=== PATIENT | male | born 1945 | race Caucasian/White ===

== ENCOUNTER 2020-06-15 00:20 | Outpatient (CLI) | payer MEDICARE, SELFPAY ==
[2020-06-15 17:56] LABS: SARS-CoV-2 RNA PCR Negative
== END 2020-06-15 00:21 | disposition home or self-care (01) ==
LOC: ANHCOVIDDT 00:20
PROVIDERS: PCP Family Medicine; Visit Provider Internal Medicine Gastroenterology
DX: Z01.818 Encounter for other preprocedural examination (principal); Z11.59 Encounter for screening for other viral diseases
CPT/HCPCS: 87635; C9803; U0003

== ENCOUNTER 2020-06-17 02:00 | Day surgery (SDC) | payer MEDICARE, SELFPAY ==
[2020-06-07 14:31] VITALS: BMI 26.4
[2020-06-17 06:30] VITALS: BP 157/77; PULSE 74; RESP 18; TEMP 36.7; O2SAT 99; BMI 26.8
[2020-06-17] MEDS: LACTATED RINGERS 1,000 ML 150 ML IV CONT (06:45)
--- NOTE | 2020-06-17 07:19 | P.PNAN_ITS ---
Anes - Initial Pre Proc Eval Procedure: Operation Date: 06/17/20 07:30 Proposed Procedures p Screening Colonoscopy - Sukhi Merlos MD Date/Time: 06/17/20 07:19 Surgeon: Sukhi Merlos MD Pre Op Diagnosis: hx colon polyps Patient Data Age: 75 Gender: M Height: 6 ft Weight: 89.8 kg Last Vital Signs Temp 98.0 F 06/17/20 06:30 Pulse 74 06/17/20 06:30 Resp 18 06/17/20 06:30 BP 157/77 H 06/17/20 06:30 Pulse Ox 99 06/17/20 06:30 Allergies Allergy/AdvReac Type Severity Reaction Status Date / Time No Known Allergies Allergy Verified 06/17/20 06:28 Home Medications Medication Instructions Recorded Confirmed Type losartan 100 1 tablet PO DAILY 02/16/20 06/07/20 History mg-hydrochlorothiazide 12.5 mg tablet metoprolol succinate 200 mg 200 mg PO DAILY 02/16/20 06/07/20 History tablet,extended release 24 hr allopurinol 300 mg tablet 300 mg PO DAILY #90 tablet 04/07/20 06/07/20 Rx omeprazole 20 mg tablet,delayed 20 mg PO DAILY #90 tablet 04/07/20 06/07/20 Rx release rosuvastatin 20 mg tablet 20 mg PO DAILY #90 tablet 04/07/20 06/07/20 Rx amlodipine 5 mg PO DAILY 06/07/20 06/07/20 History Patient hx anesthesia problems: none Family hx anesthesia problems: none PMFSH Past Medical History Medical History (Updated 06/17/20 @ 07:18 by Nicho Mcnamara MD) Arthritis Essential (primary) hypertension GERD (gastroesophageal reflux disease) Hepatitis C antibody test negative (~12/21/17) Mixed hyperlipidemia Surgical History Surgical History (Updated 02/16/20 @ 12:10 by Sabi Vázquez CMA) H/O hernia repair (~1999) History of total right hip arthroplasty (~11/19/05) Family History Family History (Updated 03/19/18 @ 11:59 by DOCTOR UNKNOWN) Mother Diabetes mellitus Hypertension Family history of congestive heart failure Father Family history of cardiovascular disease, Onset Age: 67 Acute myocardial infarction, Onset Age: 67 Hypertension Family history of elevated blood lipids Family history of coronary artery disease Social History Social History (Updated 02/16/20 @ 12:10 by Sabi Vázquez PSYCH COORDINATOR) Smoking status: Former smoker Smoking end date: 11/19/84 Alcohol intake: current Anes - Eval Final PreProcedure Day of Procedure 06/17/20 07:19 Patient weight: overweight Heart: regular rate and rhythm Lungs: clear to auscultation Airway: Mallampati scale class III Neurological: alert and oriented Last oral intake: >/= 8 hours ASA classification: III Emergent: no Anesthetic plan: proceed Anesthesia type and monitoring: general GIVS and standard monitoring Informed Consent: The patient's anesthetic plan and its attendant risks and benefits were discussed with the patient/family/POA. Questions were solicited and answers provided to the satisfaction of the patient/family/POA.
--- NOTE | 2020-06-17 07:35 | WPDGICN ---
Assessment and Plan Assessment and plan (1) History of colon polyps: Code(s): Z86.010 - Personal history of colonic polyps Status: Acute Assessment and Plan: Patient has a history of tubular adenoma removed from the colon 2013. Plan is for surveillance colonoscopy now and at 5 year intervals in the future. GI Consult Note Consult date/time: 06/17/20 07:35 HPI: Ryan Rosado is a 75 year old male seen in evaluation at the request of Dr Akosua Carlson.Patient presents for screening colonoscopy. Patient has a history of a tubular adenomatous colon polyp removed from the colon in 2013. Patient's current weight appetite bowel movements are normal. He denies abdominal pain. He denies blood in his stools. His weight has remained stable. Family history is noncontributory. Review of Systems Review of Systems: All systems reviewed & are unremarkable except as noted in HPI and below PMFSH Past Medical History Medical History Arthritis Essential (primary) hypertension GERD (gastroesophageal reflux disease) Hepatitis C antibody test negative (~12/21/17) Mixed hyperlipidemia Surgical History Surgical History H/O hernia repair (~1999) History of total right hip arthroplasty (~11/19/05) Family History Family History Mother Diabetes mellitus Hypertension Family history of congestive heart failure Father Family history of cardiovascular disease, Onset Age: 67 Acute myocardial infarction, Onset Age: 67 Hypertension Family history of elevated blood lipids Family history of coronary artery disease Social History Social History Smoking status: Former smoker Smoking end date: 11/19/84 Alcohol intake: current Meds Home Medications and Allergies Home Medications Medication Instructions Recorded Confirmed Type losartan 100 1 tablet PO DAILY 02/16/20 06/07/20 History mg-hydrochlorothiazide 12.5 mg tablet metoprolol succinate 200 mg 200 mg PO DAILY 02/16/20 06/07/20 History tablet,extended release 24 hr allopurinol 300 mg tablet 300 mg PO DAILY #90 tablet 04/07/20 06/07/20 Rx omeprazole 20 mg tablet,delayed 20 mg PO DAILY #90 tablet 04/07/20 06/07/20 Rx release rosuvastatin 20 mg tablet 20 mg PO DAILY #90 tablet 04/07/20 06/07/20 Rx amlodipine 5 mg PO DAILY 06/07/20 06/07/20 History Allergies Allergy/AdvReac Type Severity Reaction Status Date / Time No Known Allergies Allergy Verified 06/17/20 06:28 Vital Signs Vital Signs - 24 hr 06/17/20 06:30 Temperature 98.0 F Pulse Rate 74 Respiratory Rate 18 Blood Pressure 157/77 H Pulse Oximetry 99 Exam Narrative: Exam Narrative: Physical exam reveals patient to be alert. Vital signs stable. HEENT exam unremarkable. Lungs are clear to auscultation and percussion. Heart is without murmur or extra sounds. Abdominal exam bowel sounds are present soft nontender with no organomegaly. Digital external rectal exam is normal.
[2020-06-17 07:52] VITALS: BP 113/64; PULSE 61; RESP 18; O2SAT 97
[2020-06-17 08:02] VITALS: BP 113/67; PULSE 57; RESP 18; O2SAT 98
[2020-06-17 08:11] VITALS: BP 122/67; PULSE 51; RESP 18; O2SAT 98
== END 2020-06-17 08:49 | disposition home or self-care (01) ==
PROVIDERS: PCP Family Medicine; Visit Provider Internal Medicine Gastroenterology
PROC: 0DJD8ZZ Inspection of Lower Intestinal Tract, Via Natural or Artificial Opening Endoscopic (ICD-10-PCS; CPT 45378; principal; 2020-06-17 07:30)
DX: Z12.11 Encounter for screening for malignant neoplasm of colon (principal); K57.30 Diverticulosis of large intestine without perforation or abscess without bleeding; K64.8 Other hemorrhoids; D12.8 Benign neoplasm of rectum; I10 Essential (primary) hypertension; E78.2 Mixed hyperlipidemia; K21.9 Gastro-esophageal reflux disease without esophagitis; Z87.891 Personal history of nicotine dependence
CPT/HCPCS: 45385; 88305; J2704; J7120

== ENCOUNTER 2024-04-23 10:30 | Outpatient (CLI) | payer MEDICARE, OTHER, SELFPAY ==
--- NOTE | ~2024-04-23 | XR_ITS ---
Lumbosacral Spine: AP and lateral views Clinical History: Pain Findings: The normal lordotic curve is maintained. No fracture seen. There is minimal grade 1 retroli sthesis of L2 over L3. There is mild degenerative disc change of the lumbar spine. There is moderate to advanced facet arthropathy throughout the lumbar spine.. The sacroiliac joints are normally outli yumiko. Impression: Moderate degenerative spondylosis, as above. Reviewed, dictated and finalized at location . Impression: Moderate degenerative spondylosis, as above.
--- NOTE | ~2024-04-23 | XR_ITS ---
AP view of the pelvis and AP and lateral views of the left hip Clinical history: Pain Findings: No acute fracture or dislocation is seen. Osseous alignment is anatomic. Right hip arthropl asty in place. There is minimal degenerative change of the left hip joint. Soft tissues are unremarka ble. Impression: Minimal left hip joint degenerative change. Right hip arthroplasty. Reviewed, dictated and finalized at location . Impression: Minimal left hip joint degenerative change. Right hip arthroplasty.
== END 2024-04-23 10:31 ==
PROVIDERS: PCP Family Medicine; Visit Provider Nurse Practitioner
DX: M47.896 Other spondylosis, lumbar region (principal); M16.12 Unilateral primary osteoarthritis, left hip; Z96.641 Presence of right artificial hip joint
CPT/HCPCS: 72100; 73502

== ENCOUNTER 2024-07-24 09:07 | Emergency (ER) | payer MEDICARE, OTHER, SELFPAY ==
--- NOTE | ~2024-07-24 | CT_ITS ---
EXAMINATION: CT elbow LT wo con DATE: 07/24/2024 11:06 INDICATION: Posterior left elbow pain and swelling post fall TECHNIQUE: High resolution computed tomography (CT) of the left elbow was performed without intraveno us contrast. Additional sagittal and coronal reconstructions were performed. Automated exposure contr ol and iterative reconstruction technique were employed. The dose-length product was 470.20 mGy-cm. COMPARISON: None FINDINGS: Nondisplaced fracture across the tip of the coronoid process with likely secondary moderate sized elb ow joint effusion. No other fractures identified. Osteoarthritis, severe at the radiocapitellar artic ulation, moderate severity at the ulnotrochlear articulation and mild at the proximal radioulnar afshin culation. There is soft tissue swelling and subcutaneous gas suggesting associated skin laceration po sterior to the olecranon. Small enthesopathic ossicles at the olecranon insertion of the distal sunni ps tendon and at the medial epicondylar origin of the common flexor tendon wad. Tiny enthesophyte at the lateral epicondylar origin of the common extensor tendon wad. IMPRESSION: 1. Nondisplaced fracture across the tip of the coronoid process. Reviewed, dictated and finalized at location A.
--- NOTE | ~2024-07-24 | XR_ITS ---
Left elbow Technique: AP, oblique, and lateral views were obtained. Clinical History: Pain Findings: There is displacement of the fat pads, compatible with moderate to large joint effusion. Th is is compatible with underlying fracture, and there is a possible poorly delineated fracture of the coronoid process of the ulna. Otherwise, radial head fracture is statistically most likely. There is mild degenerative change of the elbow joint. There is enthesopathic change at the medial epicondyle a nd the triceps insertion. Impression: Moderate elbow joint effusion compatible with underlying fracture, possibly coronoid process fracture versus occult radial head fracture. Consider cross-sectional imaging to further evaluate for precise fracture anatomy, as indicated. Reviewed, dictated and finalized at location . Impression: Moderate elbow joint effusion compatible with underlying fracture, possibly cor onoid process fracture versus occult radial head fracture. Consider cross-secti onal imaging to further evaluate for precise fracture anatomy, as indicated.
[2024-07-24 09:40] VITALS: BP 172/85; PULSE 73; RESP 16; TEMP 36.8; O2SAT 99
--- NOTE | 2024-07-24 09:43 | ED.UPPEXIN ---
HPI - Extremity Injury (Upper) General Chief Complaint: Extremity Injury, Upper <BETHANY Olivera Last Filed: 07/24/24 16:22> Stated Complaint: left elbow injury <BETHANY Olivera Last Filed: 07/24/24 16:22> Time Seen by Provider: 07/24/24 09:43 <BETHANY Olivera Last Filed: 07/24/24 16:22> Source: patient <BETHANY Olivera Last Filed: 07/24/24 16:22> Mode of arrival: ambulatory <BETHANY Olivera Last Filed: 07/24/24 16:22> Limitations: no limitations <BETHANY Olivera Last Filed: 07/24/24 16:22> History of Present Illness HPI narrative: this is a 79-year-old male who presents to the ED for chief complaint of left elbow injury that occurred yesterday evening around 7:00 p.m.. Patient states that he is going down the garage steps and probably tripped due to his neuropathy. He states that he fell into the boat ramp which is what struck the left elbow. States that he ended up landing flat on his back but has had no back pain last night or today. Denies head injury or LOC. Denies new onset numbness or weakness or any further site of injury <BETHANY Olivera Last Filed: 07/24/24 16:22> Related Data Home Medications: Home Medications Medication Instructions Recorded Confirmed amlodipine 5 mg tablet 5 mg PO DAILY 08/14/23 06/19/24 losartan 100 mg tablet 100 mg PO DAILY 08/14/23 06/19/24 <BETHANY Olivera Last Filed: 07/24/24 16:22> Allergies/Adverse Reactions: Allergies Allergy/AdvReac Type Severity Reaction Status Date / Time No Known Allergies Allergy Verified 07/24/24 11:33 <BETHANY Olivera Last Filed: 07/24/24 16:22> Review of Systems Review of Systems: All systems as dictated in HPI <BETHANY Olivera Last Filed: 07/24/24 16:22> [facility] Past Medical History Medical History: Medical History (Updated 07/24/24 @ 11:23 by Darrian Baltazar PA-C) Arthritis Essential (primary) hypertension GERD (gastroesophageal reflux disease) Hepatitis C antibody test negative (~12/21/17) Mixed hyperlipidemia <Darrian Baltazar PA-C - Last Filed: 07/24/24 16:22> Surgical History Surgical History: Surgical History H/O hernia repair (~1999) History of total right hip arthroplasty (~11/19/05) <Darrian Baltazar PA-C - Last Filed: 07/24/24 16:22> Family History Family History: Family History Mother Diabetes mellitus Hypertension Family history of congestive heart failure Father Family history of cardiovascular disease, Onset Age: 67 Acute myocardial infarction, Onset Age: 67 Hypertension Family history of elevated blood lipids Family history of coronary artery disease <Darrian Baltazar PA-C - Last Filed: 07/24/24 16:22> Social History Social History: Social History Smoking status: Former smoker Smoking end date: 11/19/84 Alcohol intake: current Drinks per week: 24 Substance use: never Substance use type: does not use Lack of Transportation: No Lack of Food: Never True Current Housing: I Have Housing Concerned About Future Housing: No Difficulty Paying Gas/Electric Bills: No Difficulty Paying for Meds: No Currently Unemployed: No Education: High School Diploma/GED Difficulty w/ Childcare or Family Care: No Living arrangements: with family Occupation/Education: retired Gender identity (if verbalized by the patient): Male <Darrian Baltazar PA-C - Last Filed: 07/24/24 16:22> Exam Narrative: GENERAL: Well-appearing, well-nourished, and in no acute distress. HEAD: Normocephalic, atraumatic. EYES: PERRLA and EOMI. ENT: Nares clear, no rhinorrhea or epistaxis. Mucous membranes moist. Oropharynx without tonsillar hypertrophy exudate or other lesions. NECK: Supple. No adenopathy or
[2024-07-24 12:35] VITALS: BP 141/76; PULSE 60; RESP 16; TEMP 36.1; O2SAT 100
== END 2024-07-24 12:45 | disposition home or self-care (01) ==
PROVIDERS: Emergency Provider Physician Assistant; PCP Family Medicine
DX: S52.042A Displaced fracture of coronoid process of left ulna, initial encounter for closed fracture (principal); W10.9XXA Fall (on) (from) unspecified stairs and steps, initial encounter; I10 Essential (primary) hypertension; E78.2 Mixed hyperlipidemia; K21.9 Gastro-esophageal reflux disease without esophagitis; Z87.891 Personal history of nicotine dependence
CPT/HCPCS: 29105; 73080; 73200; 99284; A4565

== ENCOUNTER 2024-08-28 10:50 | Outpatient (CLI) | payer MEDICARE, OTHER, SELFPAY ==
--- NOTE | ~2024-08-28 | XR_ITS ---
Left elbow Technique: AP, oblique, and lateral views were obtained. Clinical History: Fracture COMPARISON: 07/24/2024 Findings: Probable nondisplaced coronoid fracture, somewhat poorly seen radiographically. No change i n alignment. Stable enthesopathic changes at the triceps tendon insertion and medial epicondyle humer us. Joint effusion is resolved. Impression: Probably no significant interval change in nondisplaced coronoid process fracture. Interval resolution of joint effusion. Reviewed, dictated and finalized at location . Impression: Probably no significant interval change in nondisplaced coronoid process fractu re. Interval resolution of joint effusion.
== END 2024-08-28 10:51 | disposition home or self-care (01) ==
LOC: ANHIMG 10:54
PROVIDERS: PCP Nurse Practitioner; Visit Provider Orthopaedic Surgery
DX: S52.045A Nondisplaced fracture of coronoid process of left ulna, initial encounter for closed fracture (principal); X58.XXXA Exposure to other specified factors, initial encounter
CPT/HCPCS: 73080

== ENCOUNTER 2025-07-23 12:39 | Emergency (ER) | payer MEDICARE, OTHER, SELFPAY ==
--- OUTSIDE RECORDS SUMMARY | 2005-12-03 19:00 | XMS_ITS | Continuity of Care Document ---
Author Organization [facility] Address [address] [place] [address] Phone Care Team Providers Care Mass Spectrometry Manager Name Role Phone Moiz TOTH, Fred Unavailable Unavailable Advance Directives Directive Yes / No Effective Date File Name No Information Encounters Encounter Description Practice Location Reason(s) For Visit Diagnoses Date Provider Providers Copied on Encounter [facility], [address], [place], [place], [id number], [place] tel:[phone] [facility] [place] (Op) PREOP RESPIRATORY EXAM Moiz Ibarra. [address] , [place], [place], [id number], [place]. tel:[phone] Family History Family Member Type Diagnosis Age At Onset No Information Payers Payer name Insurance type Covered green party ID Authoriza tion(s) No Information Social History Type Description Quantity Date Captured Comments Sex Male Smoking Status No Information Chief Complaint And Reason For Visit No Information Reason For Referral Reason For Referral No Information History Of Present Illness Encounter Date Complaint History Of Prese nt Illness No Information Functional Status Date Functional Assessmen t No Information Instructions Date Instruction Additional Infor mation No Information Assessments Type Assessment Date No Information Patient Care Teams Name Effective Dates (start - stop) Status Members No Information
--- OUTSIDE RECORDS SUMMARY | 2005-12-03 19:00 | XMS_ITS | Continuity of Care Document ---
Author Organization [facility] Address [address] [place] [address] Phone Care Team Providers Care Tuck Pointer Name Role Phone Moiz TOTH, Fred Unavailable Unavailable Advance Directives Directive Yes / No Effective Date File Name No Information Encounters Encounter Description Practice Location Reason(s) For Visit Diagnoses Date Provider Providers Copied on Encounter [email or web address], [address], [place], [place], [id number], [place] tel:[phone] [facility] [place] (Op) PREOP RESPIRATORY EXAM Moiz Ibarra. [address] , [place], [place], [id number], [place]. tel:[phone] Family History Family Member Type Diagnosis Age [...]
--- OUTSIDE RECORDS SUMMARY | 2025-05-26 05:30 | XMS_ITS | Continuity of Care Document ---
Author Organization [facility] [place] Address [address] [facility], [place], operated by [facility] [address] Edmondson [address] [place] [phone] Phone Care Team Providers Care Court Liaison Name Role Phone Brittany Abdullahi OD Unavailable Unavailable Allergies, Adverse Reactions, Alerts Substance Reaction Status Criticality No Known Allergies Active No Inform ation Medications Medication Instructions Dosage Effective Dates (start - stop) Status Comments omeprazole 20 mg tablet,delayed release take 1 by oral route every day 1 - Active allopurinol 300 mg tablet take 1 tablet by oral route every day 300 MG - Active losartan 100 mg tablet take 1 tablet by oral route every day 100 MG - Active prednisone 5 mg tablet take (0.5MG/KG) by oral route every day 0.5 MG/KG - Active metoprolol succinate ER 200 mg tablet,extended release 24 hr take 1 tablet by oral route every day 200 MG - Active rosuvastatin 40 mg tablet take 1 tablet by oral route every day 40 MG - Active amlodipine 5 mg tablet take 1 tablet by oral route every day 5 MG - Active Procedures Procedure Date No Charge Optomap Fundus Photos 025 Office/outpatient Visit, Est No Charge Refraction Remove Cataract, Post Op Care Post-op Follow-up Visit Remove Cataract, Insert Lens,Comanaged J Echo Exam Of Eye-Professional No Charge IOL Master No Charge Refraction No Charge GDX Retina Echo Exam Of Eye-Technical Fundus Photography W/ Report Aug-26-2024 Corneal Topography Office/outpatient Visit, [facility] Advance Directives Directive Yes / No Effective Date File Name Other Directive No N/A N/A WARNING:The information contained in this section is historical and is provided for information only and does not constitute a legal document or any assurance that the information is still accurate. Please verify the information with the bedoya of the legal document before using it for clinical purposes. Encounters Encounter Description Practice Location Reason(s) For Visit Diagnoses Date Provider Providers Copied on Encounter Office/outpa tient Visit, Est [facility] [facility], [address], [place], [place], [address], tel:[phone] SEC [facility]ner GABI Professional 6 Month Complete Exam (chief complaint) Central corneal opacity of left eyeChoroidal nevus, right eyeAphakia of left eyePseudophak ia, right eye 5 Bradly OD Brittany. [facility] [address], [address], [place], [place], [address], . tel:[phone] Referring Provider: Isac Peck, [address], [place], [address] . tel:[phone] [address] [employer] [facility], [address], [place], [place], [address], tel:[phone] SEC [facility]ner GAB[facility] Professional Post-Op (chief complaint) Postop check 5 Azael OD Noelle. [facility] [employer], [address], [place], [place], [address], [place]. tel:[phone] Referring Provider: Isac Peck, [facility] [address], [place], [address] . tel:[phone] [address] [employer] [facility], [address], [place], [place], [address], tel:[phone] DEI [place] 1 day CE/PCIOL Post-op (chief complaint) Postoperative visitPostop check 5 Bradly OD Brittany. [address] [place] [address] [address], [address], [place], [place], [address], . tel:[phone] Referring Provider: Isac Peck, [address] [place] [address], [place], [address] . tel:[phone] [facility], [address] [place] [address] [address], [place], [place], [address], tel:[phone] [facility] No Information 5 Megan Chau. [address] [place] [address] [employer], [address], [place], [place], [address], . tel:[phone] Referring Provider: Isac Peck, [facility] [address], [place], [address] . tel:[phone] [facility], [address] [place] [address] [address], [place], [place], [address], tel:[phone] SEC [place] No Information 5 Megan Chau. [address] [place] [address] [employer], [address], [place], [place], [address], [place]. tel:[phone] Referring Provider: Isac Peck, [facility] [address], [place], [address] . tel:[phone] Office/outpa tient Visit, [facility], [address] [place] [address] [address], [place], [place], [address], tel:[phone] SEC [place] Cataract evaluation (chief complaint) Combined forms of age-related cataract, right eyeCentral corneal opacity of left eyeCorneal scarAphakia of left eyeOther vitreous opacities, right eyeChoroidal nevus, right eye 4 Megan Chau. [address] [place] [address] [employer], [address], [place], [place], [address], . tel:[phone] Referring Provider: Isac Peck, [facility] [address], [place], [address] . tel:[phone] [facility], [address], [place], [place], [address], tel:[phone] SEC Martita ACEVES No Information 4 Megan Chau. [address], [address], [place], [place], [address], [place]. tel:[phone] Family History Family Member Type Diagnosis Age At Onset No Information Payers Payer name Insurance type Covered republican ID Authoriza timelany(s) [place] [id number] [facility] [id number] Social History Type Description Quantity Date Captured Comments Alcohol Use Details 4 drinks daily Caffeine Use Details 2 cups per day Tobacco Use Status Ex-cigarette smoker Smoking Status Former smoker Smoking Tobacco Use Details Cigarette: Age Started: 18, Age Stopped: 39, Years Used 23 Cigarette: No Details Available Sex Male Chief Complaint And Reason For Visit From encounter dated '05/26/2025 10:30'. 6 Month Complete Exam (chief complaint). Description: The 80 year old patient presents for evaluation of 6 Month Complete Exam in the right eye and left eye. Pt states vision is great. Pt states after CE IOL SX he has great vision. Pt states no issue or concerns with vision. Pt denies pain, pressure, flashes of lights and floaters. Reason For Referral Reason For Referral No Information Plan Of Treatment Date Type Action Status Goal Tobacco cessation counseling completed Goal Tobacco cessation counseling completed Goal Tobacco cessation counseling completed Goal Tobacco cessation counseling completed Appointment Ryan Rosado BOOKED History Of Present Illness Encounter Date Complaint History Of Prese nt Illness 6 Month Complete Exam The 80 yea r old patient presents for evaluation of 6 Month Complete Exam in the right eye and left eye. Pt states vision is great. Pt states after CE IOL SX he has great vision. Pt states no issue or concerns with vision. Pt denies pain, pressure, flashes of lights and floaters. Post-Op The 79 year old patient presents for a 2 week post op CE OD. Patient is using his drop as directed. Patient states OD is doing really good. 1 day CE/PCIOL Post-op The 79 ye ar old patient presents for evaluation of 1 day CE/PCIOL Post-op in the right eye. Pt reports vision OD is much better. Pt states eyes is a little scratchy. Pt states he is seeing a ring around taillights, stoplights and headlights at a distance. Post op drop and after care instructions reviewed and understood by pt. Cataract evaluation The 79 year old patient presents for evaluation of Cataract evaluation in the right eye and left eye. Pt has noticed over the past year decrease in vision in OD. Pt has h/o Injury to OS at age 3 and never saw well after. They wanted to take out eye but mom did not want. Pt does has some peripheral vision in OS. Pt. states he was told in past they could fix OS but when went back years later doctor recommended not doing any surgery on OS due to would have diplopia in OS. Pt has trouble seeing road signs at a distance. Pt has trouble reading small print even with glasses on. Pt. has trouble with night driving and playing golf seeing two balls instead of one. Functional Status Date Functional Assessmen t No Information Instructions Date Instruction Additional Infor vernon Impression/Plan Impression/Plan Impression/Plan Impression/Plan Assessments Type Assessment Date assessment Central corneal opacity of left eye assessment Choroidal nevus, right eye May-0 assessment Aphakia of left eye assessment Pseudophakia, right eye 025 Patient Care Teams Name Effective Dates (start - stop) Status Members No Information
--- OUTSIDE RECORDS SUMMARY | 2025-05-26 05:30 | XMS_ITS | Continuity of Care Document ---
Author Organization [facility] [place] Address [address] [facility] [address] Ed[address]son [address] [place] [phone] Phone Care Team Providers Care Body Shop Worker Name Role Phone Brittany Abdullahi OD Unavailable [...] W/ Report Aug-26-2024 Corneal Topography Office/outpatient Visit, [facility] Advance Directives Directive Yes / No Effective [...] Copied on Encounter Office/outpa tient Visit, Est Doctor Evidence [facility], [address], [place], [place], [address], tel:[phone] SEC Ghe[place] GABI Professional 6 Month Complete Exam (chief complaint) Central corneal opacity of left eyeChoroidal nevus, right eyeAphakia of left eyePseudophak ia, right eye 5 Bradly OD Brittany. [facility] [employer] [address], [address], [place], [place], [address], . tel:[phone] Referring Provider: Isac Peck, [address], [place], [address] . tel:[phone] Doctor Evidence [facility], [address], [place], [place], [address], tel:[phone] SEC G[place] GABI Professional Post-Op (chief complaint) Postop check 5 Azael OD Noelle. [facility] [employer], [address], [place], [place], [address], [place]. tel:[phone] Referring Provider: Isac Peck, [employer] [address], [place], [address] . tel:[phone] Doctor Evidence [facility], [address], [place], [place], [address], tel:[phone] DEI [place] 1 day CE/PCIOL Post-op (chief complaint) Postoperative visitPostop check 5 Bradly OD Brittany. [address] [place] [address] [address], [address], [place], [place], [address], . tel:[phone] Referring Provider: Isac Peck, [address] [place] [address], [place], [address] . tel:[phone] [facility], [address] [place] [address] [address], [place], [place], [address], tel:[phone] [facility] No Information 5 Megan Chau. [address] [place] [address] [employer], [address], [place], [place], [address], . tel:[phone] Referring Provider: Isac Peck, [facility] [employer] [address], [place], [address] . tel:[phone] [facility], [address] [place] [address] [address], [place], [place], [address], tel:[phone] SEC [place] No Information 5 Megan Chau. [address] [place] [address] [employer], [address], [place], [place], [address], [place]. tel:[phone] Referring Provider: Isac Peck, [facility] [employer] [address], [place], [address] . tel:[phone] Office/outpa tient Visit, [facility], [address] [place] [address] [address], [place], [place], [address], tel:[phone] SEC [place] Cataract evaluation (chief complaint) Combined forms of age-related cataract, right eyeCentral corneal opacity of left eyeCorneal scarAphakia of left eyeOther vitreous opacities, right eyeChoroidal nevus, right eye 4 Megan Chau. [address] [place] [address] [employer], [address], [place], [place], [address], . tel:[phone] Referring Provider: Isac Peck, [facility] [employer] [address], [place], [address] . tel:[phone] [facility], [address], [place], [place], [address], tel:[phone] SEC Martita ACEVES No Information 4 Megan Chau. [address], [address], [place], [place], [address], [place]. tel:[phone] Family History Family Member Type Diagnosis Age At Onset No Information Payers Payer name Insurance type Covered republican ID Authoriza timelany(s) [place] MB [id number] [facility] [id number] Social History Type Description Quantity Date Captured [...]
--- NOTE | 2025-07-23 12:41 | ED_ITS ---
HPI - Wound/Laceration General Chief Complaint: Wound/Laceration Stated Complaint: open wound left leg Time Seen by Provider: 07/23/25 12:40 Source: patient Mode of arrival: ambulatory Limitations: no limitations History of Present Illness HPI narrative: Ryan is a 80-year-old male patient presenting to the clinic today with complaints of a wound to his left lateral lower leg. He reports he cut his leg on a pipe approximately 1 month ago. He feels as though his leg wound is not healing quickly and once the evaluated. States there is a stinging burning pain at times over the wound. Wound is scabbed over. He denies any fevers, chills, or body aches. Has not been applying any medications to the wound. Last tetanus was 10 years ago. Related Data Home Medications ?Medication ?Instructions ?Recorded ?Confirmed ?Last Taken ?Type amlodipine 5 mg tablet 5 mg PO DAILY 08/14/2306/16 Unknown History losartan 100 mg tablet 100 mg PO DAILY 08/14/23 Unknown History prednisone 5 mg tablet mg 07/23/25 Unknown History Allergies Allergy/AdvReac Type Severity Reaction Status Date / Time No Known Allergies Allergy Verified 07/23/25 12:48 Review of Systems Review of Systems: Pertinent positives per HPI. Patient denies any fever, chills, rash, headache, visual changes, dizziness, cough, runny nose, sore throat, shortness of breath, chest pain, palpitations, nausea, vomiting, diarrhea, constipation, abdominal pain, or any urinary issues. [facility] Past Medical History Medical History Arthritis GERD (gastroesophageal reflux disease) Essential (primary) hypertension Mixed hyperlipidemia Hepatitis C antibody test negative (~12/21/17) Surgical History Surgical History H/O cataract removal with insertion of prosthetic lens (~11/2024) right eye H/O hernia repair (~1999) History of total right hip arthroplasty (~11/19/05) Family History Family History Mother Diabetes mellitus Hypertension Family history of congestive heart failure Father Family history of cardiovascular disease, Onset Age: 67 Acute myocardial infarction, Onset Age: 67 Hypertension Family history of elevated blood lipids Family history of coronary artery disease Social History Social History Social History: Caffeine- coffee Years smoked: 25 Smoking status: Former smoker Tobacco type: cigarettes Smoking end date: 11/19/84 Alcohol intake: current Drinks per week: 28 Alcohol use details: Beer Substance use: never Substance use type: does not use Do You Feel Safe in your Home?: Yes Lack of Transportation: No Lack of Food: Never True Current Housing: I Have Housing Concerned About Future Housing: No Difficulty Paying Gas/Electric Bills: No Difficulty Paying for Meds: No Currently Unemployed: No Education: High School Diploma/GED Difficulty w/ Childcare or Family Care: No Living arrangements: with family Additional living arrangements comments: with sp Occupation/Education: retired Gender identity (if verbalized by the patient): Male Comments At the time of my signature, I reviewed and agree with the nursing past medical, surgical, social, and family history. There is no relevant family history pertinent to the patient complaint. Exam Narrative: General: Well-developed, well nourished, in no apparent distress Head: Normocephalic, atraumatic. Cardio: Regular rate and rhythm, s1 and s2 normal, no murmur appreciated. Resp: Clear to auscultation bilaterally, no rhonchi, rales, wheezing or rubs. Integumentary: [place], warm, and dry, 5 x 3cm scabbed over wound to the left lower leg without redness, induration, erythema, or drainage. Course Course Emergency Course: Portions of this record may have been created with voice recognition software. Level of Care: Express Care Visit Vital Signs Vital signs: Vital Signs Temperature 36.3 C L 07/23/25 12:48 Pulse Rate 66 07/23/25 12:48 Respiratory Rate 18 07/23/25 12:48 Blood Pressure 132/59 L 07/23/25 12:48 Pulse Oximetry 99 07/23/25 12:48 Oxygen Delivery Room Air 07/23/25 12:48 Temperature 36.3 C L 07/23/25 12:48 Pulse Rate 66 07/23/25 12:48 Respiratory Rate 18 07/23/25 12:48 Blood Pressure 132/59 L 07/23/25 12:48 Pulse Oximetry 99 07/23/25 12:48 Oxygen Delivery Room Air 07/23/25 12:48 Vital signs reviewed MDM - Wound/Laceration MDM Narrative Medical decision making narrative: At the time of visit patient is resting comfortably on the exam table. Patient appears to be nontoxic. Complaints of a wound to his left lateral lower leg. He reports he cut his leg on a pipe approximately 1 month ago. He feels as though his leg wound is not healing quickly and once the evaluated. States there is a stinging burning pain at times over the wound. Wound is scabbed up. He denies any fevers, chills, or body aches. Has not been applying any medications to the wound. On exam patient has a 5 x 3 cm scabbed over wound to the left lateral lower leg. No redness, erythema, drainage, or induration. Patient does have bilateral pitting edema left greater than right-patient states this is normal for him. He denies any shortness of breath or chest pain. Patient states it has been 10 years since his last tetanus. Offered tetanus shot and patient declined at this time Plan: I suspect patient has a healing wound to the left lower lateral leg. Recommend follow-up with PCP. Encouraged to wash the wound daily with soap and water and pat dry. Watch for signs and symptoms of infection. Offer tetanus shot the clinic and patient declined Supportive measures were discussed with the patient and they voiced understanding discharge instructions and agrees to treatment plan. Return precautions reviewed Differential Diagnosis Differential diagnosis: Likely laceration, abscess, abrasion, avulsion of skin and other (Healing wound, nonhealing wound, cellulitis, wound infection) Discharge Plan Discharge Clinical Impression: Healing wound Patient Disposition: Home Condition: Stable Instructions: Antibiotic Form, Wound Healing and Your Diet (ED) Additional Instructions: No signs of infection in the clinic today. Wound is scabbed over and appears to be healing. Keep area clean and dry Wash area daily with soap and water Watch for signs and symptoms of infection-fever, redness, swelling, increase in pain, purulent discharge, or streaking Follow-up with PCP for wound check Patient Language: Khmer Prescriptions: No Action prednisone 5 mg tablet losartan 100 mg tablet 100 mg PO DAILY Patient Comments: From prize fighter amlodipine 5 mg tablet 5 mg PO DAILY Patient Comments: Prescribed by prize fighter metoprolol succinate 200 mg tablet extended release 24 hr 200 mg PO DAILY Qty: 30 0RF omeprazole 20 mg capsule,delayed release(DR/EC) See Rx Instructions .ROUTE .COMPLEX Qty: 90 1RF Dose Instruction: TAKE 1 CAPSULE EVERY DAY Rx Instructions: TAKE 1 CAPSULE EVERY DAY rosuvastatin 40 mg tablet See Rx Instructions .ROUTE .COMPLEX Qty: 90 1RF Dose Instruction: TAKE 1 TABLET EVERY DAY Rx Instructions: TAKE 1 TABLET EVERY DAY allopurinol 300 mg tablet See Rx Instructions .ROUTE .COMPLEX Qty: 90 1RF Dose Instruction: TAKE 1 TABLET EVERY DAY Rx Instructions: TAKE 1 TABLET EVERY DAY Follow-up/Referrals: Annie Carrasquillo, [facility] [Primary Care Provider, Internal Medicine] Time of Disposition: 12:59 Quality NIHSS Nursing Documentation ED NIHSS nursing documentation: reviewed/agree
[2025-07-23 12:48] VITALS: BP 132/59; PULSE 66; RESP 18; TEMP 36.3; O2SAT 99
--- OUTSIDE RECORDS SUMMARY | 2025-07-23 12:50 | XMS_ITS | Clinical Summary ---
Author Organization [facility] Address [address] [place] [id number] Care Team Providers Care Simulation Tech Name Role Phone Miki Lim MD Primary Care Provider Allergies No known active allergies Medications gabapentin (NEURONTIN) 300 mg capsuleIndicatio ns:Neuropathic Pain Take 300 mg by mouth 3 (three) times a day 0 Active allopurinoL (ZYLOPRIM) 300 mg tabletIndication s:prevention of acute gout attack Take 300 mg by mouth surfboard maker before breakfast 0 Active omeprazole (PriLOSEC) 20 mg capsuleIndicatio ns:Stress Ulcer Prophylaxis Take 20 mg by mouth surfboard maker before breakfast 0 Active rosuvastatin (CRESTOR) 20 mg tabletIndication s:hyperlipidemia Take 20 mg by mouth nightly 0 Active losartan-hydroCH LOROthiazide (HYZAAR) 100-12.5 mg per tabletIndication s:hypertension Take 1 tablet by mouth surfboard maker before breakfast 0 Active metoprolol XL (TOPROL-XL) 200 mg extended release tabletIndication s:hypertension Take 200 mg by mouth nightly 0 Active baclofen (LIORESAL) 10 mg tabletIndication s:Muscle spasm Take 1 tablet (10 mg total) by mouth every 8 (eight) hours 90 tablet 1 Active tamsulosin (FLOMAX) 0.4 mg extended release capsule Take 1 capsule (0.4 mg total) by mouth daily with dinner 30 capsule 1 Active Active Problems Problem Noted Date Diagnosed Date Hypertension 12/21/2020 Hyperlipidemia 12/21/2020 GERD (gastroesophageal reflux disease) Blindness of left eye 12/21/2020 Anxiety 12/21/2020 Gout 12/21/2020 Spinal stenosis in cervical region 11/02/2020 Overview (11/02/2020): Added automatically from request for surgery [id number] Radiculopathy of cervical region 11/02/2020 Overview (11/02/2020): Added automatically from request for surgery [id number] Immunizations Immunization Administration Dates Next Due Influenza, Quadrivalent, Rec ombinant, Egg Free, Preservative Free, Intramuscular 09/02/2020,09/04/2019,09/12/2018 Tdap 03/26/2015 ZOSTER LIVE 12/19/2016 Surgical History Surgery Date Site/Laterality Comments HERNIA REPAIR HIP SURGERY Medical History Medical History Date Comments Arthritis Gout Hypercholesteremia Hypertension Kidney stone Family History Medical History Relation Name Comments Hypertension Father Relation Name Status Comments Father Social History Tobacco Use Types Packs/Day Years Used Date Smoking Tobacco: Former Cigarettes 1 20 0 12/07/1964 - 12/07/1984 Smokeless Tobacco: Never Alcohol Use Standard Drinks/Week Comments Yes 5 (1 standard drink = 0.6 oz pur e alcohol) 5 beers a day Sex and Gender Information Value Date Recorded Sex Assigned at Not on file Legal Sex Male 11:16 AM CLINICAL ADMINISTRATIVE COORDINATOR Gender Identity Not on file Sexual Orientation Not on file Obstetrics History Last Filed Vital Signs Vital Sign Reading Time Taken Comments Blood Pressure 128/57 12/23/2020 10:35 AM CLINICAL ADMINISTRATIVE COORDINATOR Pulse 74 12/23/2020 10:35 AM CLINICAL ADMINISTRATIVE COORDINATOR Temperature 36.4 C (97.6 F) 12/23/2020 10:35 AM CLINICAL ADMINISTRATIVE COORDINATOR Respiratory Rate 16 12/23/2020 10:35 AM CLINICAL ADMINISTRATIVE COORDINATOR Oxygen Saturation 90% 12/23/2020 10:35 AM CLINICAL ADMINISTRATIVE COORDINATOR Inhaled Oxygen Concentration - - Weight 93.5 kg (206 lb 3.2 oz) 03/15/2021 2:57 P M CDT Height 181.6 cm (5' 11.5) 03/15/2021 2:57 PM CD T Body Mass Index 28.36 03/15/2021 2:57 PM CDT Plan of Treatment Not on file Medical Devices Implanted Type Area Contact Lens Fitter Device Identifier Shelf Expiration Date Model / Serial / Lot Musculoskeletal Transplant [id number] Frozen Spine 7d Lordotic Trapezoid Spacer Allograft - [id number] - [id number] Implanted:Qty: 1 on 12/22/2020 by Pasquale Taylor MD at [facility] N/A: Spine Cervical Musculoskeletal Transplant 01/07/2025 [id number] / [id number] / [employer] [id number] 4mm 18mm Fixed Angle Screw Bone - [id number] Implanted:Qty: 4 on 12/22/2020 by Pasquale Taylor MD at [facility] N/A: Spine Cervical [employer] [id number] / / [employer] [id number] C-Hal Maxan 11mm Level 1 Fix Spine Cervical Anterior Plate Bone - [id number] Implanted:Qty: 1 on 12/22/2020 by Pasquale Taylor MD at [facility] N/A: Spine Cervical [employer] [id number] / / Insurance [facility] MEDICARE AET[employer] SENIOR SUPPLEMENT MEDICARE AET[employer] SENIOR SUPPLEMENT Advance Directives For more information, please contact: [phone] * Full Code (Latest Code Status on File) Date Activated Date Inactivated Comments 12/22/2020 9:46 AM 12/23/2020 4:58 PM Care Teams Simulation Tech Relationship Specialty Start Date End Date Miki Lim MD [address] [place] [address] [facility] - General 12/22/20
--- OUTSIDE RECORDS SUMMARY | 2025-07-23 12:50 | XMS_ITS | Clinical Summary ---
Author Organization [facility] Address [address] [place] [address] Care Team Providers Care Unload Associate Name Role Phone Miki Lim MD Primary Care Provider [phone] Source Comments [facility],non-owned Affiliates and Associated Physician Practices is amultiple site organization consisting of ambulatory clinics and hospital sitesin [place], [place], [place] and [place]. This disclosure is being madepursuant to the Care Everywhere program and may not contain all information available regarding this patient. 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 Gender Identity Not on file Sexual Orientation Not on file Last Filed Vital Signs Vital Sign Reading Time Taken Comments Blood Pressure - - Pulse - - Temperature - - Respiratory Rate - - Oxygen Saturation - - Inhaled Oxygen Concentration - - Weight 92.1 kg (203 lb) 11/01/2015 9:42 AM STREETCAR MOTORMAN Height 182.9 cm (6') 11/01/2015 9:42 AM STREETCAR MOTORMAN Body Mass Index 27.53 11/01/2015 9:42 AM STREETCAR MOTORMAN Plan of Treatment Health Maintenance Due Date Last Done Comments MEDICARE AWV 12 MONTHS 1945 HEPATITIS C SCREENING 01/18/1965 DTAP/TDAP/TD VACCINES (1 - Tdap) 1966 PNEUMOCOCCAL VACCINE 50+ (1 of 1 - PCV) 1997 ZOSTER VACCINE (1 of 2) 1997 Respiratory Syncytial Virus (RSV) Vaccine Pt: or over 60 yrs (1 - 1-dose 75+ series) 2022 DEPRESSION SCREENING 11/19/2024 COVID-19 VACCINE ( - 2023-2 5 season) 2025 INFLUENZA VACCINE (#1) 2025 HEPATITIS B VACCINE Aged Out No longe r eligible based on patient's age to complete this topic HIB VACCINE Aged Out No longer eligi ble based on patient's age to complete this topic HPV VACCINE Aged Out No longer eligi ble based on patient's age to complete this topic MENINGOCOCCAL (Group B) VACC INE SHARED DECISION-MAKING Aged Out No longer eligibl e based on patient's age to complete this topic MENINGOCOCCAL GROUPS A/C/Y/W VACCINE Aged Out No longer eligible b ased on patient's age to complete this topic Insurance MEDICARE [facility] MEDICARE Care Teams Unload Associate Relationship Specialty Start Date End Date Miki Lim MD [address] [place] [id number] PCP - General Family Medicine 10/29/15
--- OUTSIDE RECORDS SUMMARY | 2025-07-23 12:50 | XMS_ITS | Encounter Summary ---
Author Organization [facility] Address [address] [place] [address] Care Team Providers Care Basket Assembler Name Role Phone Miki Lim MD Primary Care Provider [phone] Encounter Details Date Type Department Care Team (Late st Contact Info) Description 05/15/2024 Lab Requisition [facility] - DermPath Lab [address] [place] [address] Annie Gardner DO [address] [facility] [address] [place] [address] Social History Tobacco Use Types Packs/Day Years Used Date Smoking Tobacco: Never Assessed Sex and Gender Information Value Date Recorded Sex Assigned at Not on file 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 Gender Identity Not on file Sexual Orientation Not on file documented as of this encounter Plan of Treatment Not on file documented as of this encounter Procedures Procedure Name Priority Date/Time Associated Diagnosis Comments DERMATOPATHOLOGY Routine 05/15/2024 9:02 AM CDT documented in this encounter Results * DERMATOPATHOLOGY (05/15/2024 9:02 AM CDT) Case Report Dermatopathology Report Case: [id number] Authorizing Provider: Annie Gardner DO Collected: 05/15/2024 09:02 AM Ordering Location: [facility] - Received: 05/19/2024 07:12 AM DermPath Lab Pathologist: Nunu Jones MD Specimens: A) - Skin, right helix B) - Skin, mid back 12:18 PM T DERMATOPATHOLOGY LABORATORY Final Diagnosis Specimen A. 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 SKIN, mid back: COMPOUND NEVUS WITH CONGENITAL FEATURES, IRRITATED (D22.5) (see microscopic description) 12:18 PM CDT DERMATOPATHOLOGY LABORATORY at 1218 CDT Clinical History A: R/O NMSC B: Nevus, r/o atypia 12:18 PM CDT DERMATOPATHOLOGY LABORATORY Gross Description Specimen A: Received is one formalin filled container labeled with the patient's name and designated right helix. The specimen consists of a shave biopsy measuring 5x4x3 mm. Jar 0.. Specimen B: Received is one formalin filled container labeled with the patient's name and designated mid back. The specimen consists of a shave biopsy measuring 6x6x1 mm. Jar 0. 12:18 PM CDT DERMATOPATHOLOGY LABORATORY Microscopic Description Specimen A. SKIN, right helix: The epidermis shows parakeratosis, full thickness disorderly maturation of keratinocytes, mitoses at different levels, and dyskeratotic cells. Specimen B. SKIN, mid back: There is melanin pigment in the stratum corneum. There are nests of melanocytes at the dermal-epidermal junction and within the dermis. Some melanocytes are splayed between collagen bundles and are localized around adnexal structures. 12:18 PM T DERMATOPATHOLOGY LABORATORY Disclaimer An external and internal positive and negative controls are appropriate for the histochemical, immunohistochemical and immunofluorescence stain(s) in this case (if any), except where stated explicitly. The performance characteristics of the stain(s) cited in this report were developed and its performance characteristic determined by the Dermatopathology Laboratory at [facility], directed by Dr. Victor Manuel Moncada. These tests need not be, and therefore are not, approved by the [place] Food and Drug Administration. The tests are used for clinical purposes. Billing Codes Specimen Charges Stain Charges 53079 45721 1 1 12:18 PM CDT DERMATOPATHOLOGY LABORATORY Embedded Images 12:18 PM T DERMATOPATHOLOGY LABORATORY Pathology/Cytology TISSUE SPECIMEN FROM SKIN / Unknown 05/15/2024 9:02 AM CDT 05/19/2024 7:12 AM CDT Miscellaneous samples (specimen) TISSUE SPECIMEN FROM SKIN / Unknown 05/15/2024 9:02 AM CDT 05/19/2024 7:12 AM CDT us Annie Gardner DO LAB - PATHOLOGY/CYTOLOGY ORDERABLES Final Result DERMATOPATHOLOGY LABORATORY [facility] - Department of Dermatology [facility] Medicine [address] [place] [address], [address] [phone] documented in this encounter Visit Diagnoses Not on filedocumented in this encounter Care Teams Basket Assembler Relationship Specialty Start Date End Date Miki Lim MD [address] [place] [phone] PCP - General Family Medicine 10/29/15 documented as of this encounter
== END 2025-07-23 13:03 | disposition home or self-care (01) ==
PROVIDERS: Emergency Provider Nurse Practitioner Family; PCP Nurse Practitioner
DX: S81.802A Unspecified open wound, left lower leg, initial encounter (principal); W45.8XXA Other foreign body or object entering through skin, initial encounter; I10 Essential (primary) hypertension; E78.2 Mixed hyperlipidemia; K21.9 Gastro-esophageal reflux disease without esophagitis; M19.90 Unspecified osteoarthritis, unspecified site; Z96.1 Presence of intraocular lens; Z98.41 Cataract extraction status, right eye; Z96.641 Presence of right artificial hip joint; Z87.891 Personal history of nicotine dependence
CPT/HCPCS: 99211; G0463